=== PATIENT | female | born 1950 | race Caucasian/White ===

== ENCOUNTER 2024-08-12 15:54 | Emergency (ER) | payer OTHER ==
[~2024-08-12] VITALS: Ht 152.4 cm; Wt 65.3 kg
== END 2024-08-12 17:22 | disposition home or self-care (01) ==
LOC: ED 15:54
DX: H43.391 Other vitreous opacities, right eye (principal); I10 Essential (primary) hypertension; E11.9 Type 2 diabetes mellitus without complications

== ENCOUNTER 2025-09-26 12:12 | Emergency (ER) | payer OTHER ==
[~2025-09-26] VITALS: Ht 152.4 cm; Wt 65.8 kg
== END 2025-09-26 16:10 | disposition home or self-care (01) ==
LOC: ED 12:12
DX: N64.4 Mastodynia (principal); I10 Essential (primary) hypertension; E11.9 Type 2 diabetes mellitus without complications; R00.2 Palpitations